=== PATIENT | female | born 1970 | race Caucasian/White ===

== ENCOUNTER 2018-12-16 18:41 | Observation (INO) | payer BC ==
[~2018-12-16] VITALS: Ht 172.7 cm; Wt 58.5 kg
[~2018-12-16 18:41] MED LIST: AEROECLIPSE II1 EACH MC; ALBU90OI; ALBU90OI6 INH; ALBU90OI61 INH; AMIT25 PO; AMIT50; AMIT50 PO; AMOCLA500; CARB200 PO; CIPR500 PO; DIAZ10 PO; DOXY100 PO; FLUC150A PO; FLUC200 PO; FLUSAL5005; FLUT1DIS5 INH; HYDACE5; HYDACE5 PO; LATUDA40 MG PO; LEVFLO500 PO; LORA.5; LORA1 PO; MONT10T; Multivitamin W1 EAC5 PO; NAPR250; NITR100CA PO; PRED10 PO; PROM25 PO; PSEU30 PO; Prednisone20 MG PO; QUET25 PO; Tobrex5 ML LEFTEYE; Ventolin Soln3 ML INH; XOPENEX1.25 MG/3 INH; Xopenex Hfa15 GM INH
[2018-12-16 20:33] LABS: BASOPHILS ABSOLUTE AUTO 0.04 K/mm3 (0.00-0.23); BASOPHILS PERCENT AUTO 0 % (0-2); EOSINOPHILS ABSOLUTE AUTO 0.02 K/mm3 (0.00-0.68); EOSINOPHILS PERCENT AUTO 0 % (0-6); Hematocrit 44.2 % (33.0-51.0); Hemoglobin 15.1 g/dL (11.5-16.0); IMMATURE GRAN ABSOLUTE AUTO 0.03 K/mm3 (0.00-0.10); IMMATURE GRAN PERCENT AUTO 0 % (0-1); LYMPHOCYTES ABSOLUTE AUTO 1.39 K/mm3 (0.84-5.20); LYMPHOCYTES PERCENT AUTO 12 % (21-46); MONOCYTES PERCENT AUTO 10 % (4-13); Mean Corpuscular HGB 32.2 pg (26.0-34.0); Mean Corpuscular HGB Conc 34.2 g/dL (31.5-36.5); Mean Corpuscular Volume 94 fL (80-100); Mean Platelet Volume 9.6 fL (9.1-12.4); NEUTROPHILS ABSOLUTE AUTO 8.83 K/mm3 (1.96-9.15); NEUTROPHILS PERCENT AUTO 77 % (41-73); Platelet Count 231 K/mm3 (150-400); RDW Coefficient Variation 12.3 % (11.7-14.2); RDW Standard Deviation 42.5 fL (35.1-46.3); Red Blood Cell Count 4.69 M/mm3 (3.80-5.20); White Blood Cell Count 11.51 K/mm3 (4.00-11.30)
[2018-12-16 20:56] LABS: Alanine Aminotransfer (ALT/SGP 45 U/L (12-78); Albumin, Blood 4.2 g/dL (3.4-5.0); Albumin/Globulin Ratio 1.4 (0.8-1.8); Alk Phos 69 U/L (50-136); Anion Gap 10 mmol/L (6-16); Aspartate Aminotrans (AST/SGOT 72 U/L (12-37); Bilirubin, Total 0.9 mg/dL (0.1-1.0); Blood Urea Nitrogen 10 mg/dL (8-24); Bun/Creatinine Ratio 15.2 (12.0-20.0); CO2, Blood 26 mmol/L (21-32); Chloride, Blood 101 mmol/L (98-108); Creatinine, Blood 0.66 mg/dL (0.40-1.00); Ethanol (Alcohol), Blood, Med <3 mg/dL; Globulin, Blood 3.1 g/dL (2.2-4.0); Glomerular Filtration Rate >60 (60-); Glucose, Blood 93 mg/dL (70-99); Potassium, Blood 3.5 mmol/L (3.5-5.5); Salicylate <1.7 mg/dL (2.8-20.0); Sodium, Blood 137 mmol/L (136-145); Total Protein, Blood 7.3 g/dL (6.4-8.2)
[2018-12-16 21:11] LABS: Acetaminophen, Random <2.0 ug/mL (10.0-30.0)
[2018-12-16] MEDS ORDERED: LEVALBUTEROL TA15 GM INH (21:54)
[2018-12-16] MEDS ORDERED: AMIT25 PO (21:56)
[2018-12-17 07:04] LABS: Source, Urine Clean Catch
[2018-12-17 07:12] LABS: Bilirubin, Urine Neg (Neg); Blood, Urine 3+ (Neg); Glucose Qualitative, Urine Neg (Neg); Ketones, Urine 2+ (Neg); Leukocyte Esterase, Urine Neg (Neg); Nitrite, Urine Neg (Neg); Protein, Urine Neg (Neg); Specific Gravity, Urine 1.005 (1.003-1.022); Urobilinogen, Urine NORM (Normal)
[2018-12-17 07:18] LABS: Appearance, Urine Clear (Clear); Color, Urine Pale Yellow (P-Yellow)
[2018-12-17 07:20] LABS: White Blood Cells, Urine 0-2 /hpf (0-5)
[2018-12-17 07:21] LABS: Bacteria Rare /hpf; Squamous Epithelial Cells Not Seen /hpf (Few)
[2018-12-17 07:33] LABS: U Amphetamine Screen Not Detected; U Barbituate Screen Not Detected; U Benzodiazapine Screen Not Detected; U Buprenorphine Screen Not Detected; U Cannabinoids Screen DETECTED; U Cocaine Screen Not Detected; U Methadone Screen Not Detected; U Methamphetamine Screen Not Detected; U Opiates Screen Not Detected; U Oxycodone Screen Not Detected; U Phencyclidine Screen Not Detected; U Propoxyphene Screen Not Detected
== END 2018-12-19 10:28 ==
LOC: ER 18:41 → EOR 18:42
PROVIDERS: ADMIT Emergency Medicine
DX: F31.9 Bipolar disorder, unspecified (principal); J45.909 Unspecified asthma, uncomplicated; F17.200 Nicotine dependence, unspecified, uncomplicated; Z91.038 Other insect allergy status; Z88.6 Allergy status to analgesic agent; Z88.1 Allergy status to other antibiotic agents; Z79.899 Other long term (current) drug therapy; Z79.51 Long term (current) use of inhaled steroids
CPT/HCPCS: 36415; 80053; 81001; 81025; 84443; 85025; 96372; 99285-25; G0378; G0480; Q0163; Q3014

== ENCOUNTER 2018-12-25 12:58 | Emergency (ER) | payer BC ==
[~2018-12-25] VITALS: Ht 172.7 cm; Wt 59.0 kg
[~2018-12-25 12:58] MED LIST changes: +LEVALBUTEROL TA15 GM INH
== END 2018-12-25 13:57 | disposition home or self-care (01) ==
LOC: ER 12:58
DX: F31.9 Bipolar disorder, unspecified (principal); F41.9 Anxiety disorder, unspecified; J45.909 Unspecified asthma, uncomplicated; Z88.6 Allergy status to analgesic agent; Z91.038 Other insect allergy status; Z88.8 Allergy status to other drugs, medicaments and biological substances; Z79.899 Other long term (current) drug therapy
CPT/HCPCS: 99284

== ENCOUNTER 2021-10-22 13:04 | Inpatient (IN) | payer BC ==
[~2021-10-22] VITALS: Ht 170.2 cm; Wt 65.8 kg
[2021-10-22 14:10] LABS: Ethanol (Alcohol), Blood, Med <3 mg/dL; Salicylate 1.8 mg/dL (2.8-20.0)
[2021-10-22 14:11] LABS: Alanine Aminotransfer (ALT/SGP 102 U/L (12-78); Albumin, Blood 4.5 g/dL (3.4-5.0); Albumin/Globulin Ratio 1.5 (0.8-1.8); Alk Phos 78 U/L (50-136); Anion Gap 15 mmol/L (6-16); Aspartate Aminotrans (AST/SGOT 260 U/L (12-37); Bilirubin, Total 1.2 mg/dL (0.1-1.0); Blood Urea Nitrogen 5 mg/dL (8-24); Bun/Creatinine Ratio 8.6 (12.0-20.0); CO2, Blood 20 mmol/L (21-32); Calcium, Blood 9.4 mg/dL (8.5-10.1); Chloride, Blood 85 mmol/L (98-108); Creatinine, Blood 0.58 mg/dL (0.40-1.00); Glomerular Filtration Rate 110 (60-); Glucose, Blood 113 mg/dL (70-99); Potassium, Blood 3.5 mmol/L (3.5-5.5); Sodium, Blood 120 mmol/L (136-145); Total Protein, Blood 7.5 g/dL (6.4-8.2)
[2021-10-22 14:43] LABS: Source, Urine Clean Catch
[2021-10-22 14:49] LABS: Bilirubin, Urine Neg (Neg); Blood, Urine 5+ (Neg); Color, Urine Yellow (P-Yellow); Glucose Qualitative, Urine Neg (Neg); Ketones, Urine 4+ (Neg); Leukocyte Esterase, Urine 1+ (Neg); Nitrite, Urine Neg (Neg); Protein, Urine 2+ (Neg); Urobilinogen, Urine NORM (Normal)
[2021-10-22 14:49] LABS: BASOPHILS ABSOLUTE AUTO 0.04 K/mm3 (0.00-0.23); BASOPHILS PERCENT AUTO 0 % (0-2); EOSINOPHILS ABSOLUTE AUTO 0.13 K/mm3 (0.00-0.68); EOSINOPHILS PERCENT AUTO 1 % (0-6); Hematocrit 37.6 % (33.0-51.0); Hemoglobin 14.1 g/dL (11.5-16.0); IMMATURE GRAN ABSOLUTE AUTO 0.05 K/mm3 (0.00-0.10); IMMATURE GRAN PERCENT AUTO 0 % (0-1); LYMPHOCYTES ABSOLUTE AUTO 1.18 K/mm3 (0.84-5.20); LYMPHOCYTES PERCENT AUTO 9 % (21-46); MONOCYTES ABSOLUTE AUTO 1.39 K/mm3 (0.16-1.47); MONOCYTES PERCENT AUTO 10 % (4-13); Mean Corpuscular HGB 32.9 pg (26.0-34.0); Mean Corpuscular HGB Conc 37.5 g/dL (31.5-36.5); Mean Corpuscular Volume 88 fL (80-100); Mean Platelet Volume 9.7 fL (9.1-12.4); NEUTROPHILS ABSOLUTE AUTO 10.64 K/mm3 (1.96-9.15); NEUTROPHILS PERCENT AUTO 79 % (41-73); Platelet Count 281 K/mm3 (150-400); RDW Coefficient Variation 11.5 % (11.7-14.2); RDW Standard Deviation 36.7 fL (35.1-46.3); Red Blood Cell Count 4.28 M/mm3 (3.80-5.20); White Blood Cell Count 13.43 K/mm3 (4.00-11.30)
[2021-10-22 15:44] LABS: U Amphetamine Screen Not Detected; U Barbituate Screen Not Detected; U Benzodiazapine Screen DETECTED; U Buprenorphine Screen Not Detected; U Cannabinoids Screen DETECTED; U Cocaine Screen Not Detected; U Methadone Screen Not Detected; U Methamphetamine Screen Not Detected; U Opiates Screen Not Detected; U Oxycodone Screen Not Detected; U Phencyclidine Screen Not Detected; U Propoxyphene Screen Not Detected
[2021-10-22 15:55] LABS: Appearance, Urine Hazy (Clear)
[2021-10-22 15:59] LABS: Bacteria Few /hpf; Squamous Epithelial Cells Few /hpf (Few)
[2021-10-22 16:41] LABS: Free Thyroxine 1.24 ng/dL (0.70-1.60)
[2021-10-22 16:44] LABS: Thyroid Stimulating Hormone 1.04 uIU/mL (0.360-4.800)
[2021-10-22 17:56] LABS: Base Excess Venous 0.7 mmol/L; PCO2 Venous 28.7 mmHg (38-42); pH Blood Venous 7.52 (7.34-7.37)
[2021-10-22 18:42] LABS: Acetaminophen, Random <2.0 ug/mL (10.0-30.0)
[2021-10-22] MEDS ORDERED: Ativan1 MG PO (22:41)
[2021-10-22] MEDS ORDERED: AMIT25 PO (22:42)
[2021-10-22] MEDS ORDERED: LEVALBUTEROL TA15 G1 INH (22:45)
[2021-10-23 05:28] LABS: BASOPHILS ABSOLUTE AUTO 0.04 K/mm3 (0.00-0.23); BASOPHILS PERCENT AUTO 1 % (0-2); EOSINOPHILS ABSOLUTE AUTO 0.09 K/mm3 (0.00-0.68); EOSINOPHILS PERCENT AUTO 1 % (0-6); Hematocrit 35.9 % (33.0-51.0); Hemoglobin 12.7 g/dL (11.5-16.0); IMMATURE GRAN ABSOLUTE AUTO 0.03 K/mm3 (0.00-0.10); IMMATURE GRAN PERCENT AUTO 0 % (0-1); LYMPHOCYTES ABSOLUTE AUTO 1.38 K/mm3 (0.84-5.20); LYMPHOCYTES PERCENT AUTO 16 % (21-46); MONOCYTES ABSOLUTE AUTO 0.82 K/mm3 (0.16-1.47); MONOCYTES PERCENT AUTO 10 % (4-13); Mean Corpuscular HGB 32.2 pg (26.0-34.0); Mean Corpuscular HGB Conc 35.4 g/dL (31.5-36.5); Mean Corpuscular Volume 91 fL (80-100); Mean Platelet Volume 9.3 fL (9.1-12.4); NEUTROPHILS ABSOLUTE AUTO 6.27 K/mm3 (1.96-9.15); NEUTROPHILS PERCENT AUTO 73 % (41-73); Platelet Count 228 K/mm3 (150-400); RDW Coefficient Variation 11.7 % (11.7-14.2); RDW Standard Deviation 38.9 fL (35.1-46.3); Red Blood Cell Count 3.95 M/mm3 (3.80-5.20); White Blood Cell Count 8.63 K/mm3 (4.00-11.30)
[2021-10-23 06:06] LABS: Magnesium, Blood 2.3 mg/dL (1.6-2.4)
[2021-10-23 06:07] LABS: Albumin, Blood 3.7 g/dL (3.4-5.0); Albumin/Globulin Ratio 1.3 (0.8-1.8); Bun/Creatinine Ratio 6.4 (12.0-20.0); Calcium, Blood 8.7 mg/dL (8.5-10.1); Creatinine, Blood 0.62 mg/dL (0.40-1.00); Globulin, Blood 2.8 g/dL (2.2-4.0); Potassium, Blood 2.7 mmol/L (3.5-5.5); Total Protein, Blood 6.5 g/dL (6.4-8.2)
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
--- NOTE | 2021-10-23 18:34 | NUR ---
SHIFT SUMMARY PATIENT DENIES PAIN, NAUSEA, AND SHORTNESS OF BREATH. PATIENT IS A 2P FOR TRANSFERS. PATIENT SLEEPS ON AND OFF. WHEN PATIENT IS AWAKE, PATIENT GOES FROM CURSING AT STAFF AND VERY AGGITATED TO CRYING TO LAUGHING WITH STAFF. PATIENT IN RESTRAINTS DUE TO ATTEMPTS TO LEAVE AND THREATENING TO HARM STAFF. PATIENT FREQUENTLY TALKED ABOUT CATS ON THE LANDR[place] AND HEARING HUSBANDS VOICE. PATIENT HAS FLIGHT OF IDEAS, PRESSURED SPEECH, AND TANGENTIAL CONVERSATIONS. PATIENT FREQUENTLY TALKS TO SELF. 1:[address] MEJIA CONSULTED IN AFTERNOON. NEW ORDERS FOR LOW SI, REFERRAL TO INPATIENT PSYCH. PATIENT HARD TO REDIRECT. PATIENT EATING AND DRINKING POORLY.
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
[2021-10-24 08:59] LABS: Anion Gap 9 mmol/L (6-16); Blood Urea Nitrogen 3 mg/dL (8-24); Bun/Creatinine Ratio 5.9 (12.0-20.0); CO2, Blood 25 mmol/L (21-32); Calcium, Blood 9.3 mg/dL (8.5-10.1); Chloride, Blood 100 mmol/L (98-108); Creatinine, Blood 0.51 mg/dL (0.40-1.00); Glomerular Filtration Rate 113 (60-); Glucose, Blood 113 mg/dL (70-99); Magnesium, Blood 2.3 mg/dL (1.6-2.4); Phosphorus, Blood 2.9 mg/dL (2.5-4.9); Potassium, Blood 3.6 mmol/L (3.5-5.5); Sodium, Blood 134 mmol/L (136-145)
--- NOTE | 2021-10-24 17:33 | NUR ---
SHIFT SUMMARY PATIENT MEDICATED X1 WITH TYLENOL FOR NECK PAIN, PATIENT GIVEN NICOTINE GUM X3, PATIENT MEDICATED X1 FOR ANXIETY. PATIENT IS IND IN ROOM. YEFRI VEST DISCONTINUED THIS MORNING, NO ISSUES. PATIENT STILL HAS TANGENTIAL SPEECH AT TIMES, FLIGHT OF IDEAS, PRESSURED SPEECH. PATIENT GOES THROUGH PHASES OF HAPPY THEN CRYING THEN AGGITATED. VISITED IN AFTERNOON. INPATIENT PSYCH FACILITY IS STILL RECOMMENDED. PATIENT IS EATING AND DRINKING SOME WHEN ENCOURAGED. PATIENT DOES NOT SLEEP MUCH. PATIENT PLEASANT AND COOPERATIVE WITH CARE.
--- NOTE | 2021-10-25 05:00 | NUR ---
SHIFT SUMMARY PT HAS BEEN UP AND DOWN INDEPENDENTLY THIS SHIFT. SHE HAS BEEN CALM AND COOPERATIVE WITH CARE. SHE ASKS FROR ANXIETY MEDS NEEDED, EXPLAINS HER NEEDS AND USES HER CALL LIGHT. SHE HAS NOT GOTTEN MUCH SLEEP BUT CLAIMS SHE NEEDS TO BE "UP AND MOVING TO PREVENT BLOOD CLOTS". PT USED TO BE M[facility] FOR [facility]. SHE STATES SHE HAS PAIN IN HER NECK BUT DENIES NEED FOR PAIN MEDICATION. BED IN LOWEST POSITION AND CALL LIGHT IN REACH
--- NOTE | 2021-10-25 17:58 | NUR ---
SHIFT SUMMARY PATIENT MEDICATED X2 FOR PAIN. PATIENT DENIES NAUSEA AND SHORTNESS OF BREATH. PATIENT IS INDEPENDENT IN ROOM. PATIENT CALM AND COOPERATIVE MOST OF SHIFT, PATIENT DOES STILL HAVE MANIC EPISODES, CRYING TO LAUGHING. PATIENT LESS AGGITATED THIS SHIFT. INPATIENT PSYCH REFERRALS STARTED. PATIENT IS EATING AND DRINKING BETTER, USUALLY 50% OF MEALS. PATIENT IS PLEASANT AND COOPERATIVE WITH CARE.
--- NOTE | 2021-10-26 05:15 | NUR ---
SHIFT SUMMARY PT HAS NOT SLEPT MUCH THIS SHIFT. SHE HAS BEEN UP AND DOWN ALL NIGHT WALKING IN THE HALLS AND GETTING FIXATED ON DIFFERENT TOPICS. SHE IS CONCERNED THAT SHE MAY HAVE THE SAME URI THAT HER DOES SHE FEELS SOME SINUS PRESSURE AND STATED THAT "I USUALLY GET VERY SICK AFTER ONE OF MY EPISODES." SHE HAS WRITTEN SEVERAL NOTES ON HER BOARD. PT IS OVER ALL VERY ANXIOUS, BUT DENIED THE MEDICATION STATING THAT SHE DIDN'T "WANT TO DOZE ALL DAY" PT WAS ABLE TO TAKE A SHOWER AND EAT A FEW SNACKS. BED IN LOWEST POSITION AND CALL LIGHT IN REACH.
--- NOTE | 2021-10-26 08:33 | NUR ---
pt sitting on the side of the bed and walking in the halls, a/ox3, seems to be fixating on taking her meds now, was reported no sleep last night, she is cooperative with care, follows commands well, denies pain, states she's anxious, lungs are a bit course, spring in right base, on r/a, resp even and unlabored, no cough noted, hrr, no edema noted, ppp+2, cap refill <3sec, vs stable, afebrile, btx4, abd flat soft nontender, voids without diff, skin c/w/d, maew, mery, up in room ad alee, gait noted to be steady, call light in reach.
--- NOTE | 2021-10-26 18:23 | NUR ---
pt has been calm today, she did ask for ativan prn once, and wanted it broke in half, no further changes this shift. call light in reach.
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
--- NOTE | 2021-10-27 06:29 | NUR ---
PT CURRENTLY IN THE HALLWAY CRYING OVER THE LACK OF FOOD OPTIONS IN THE PANTRY AND SAYING SHE NEEDS HER PROTEIN BEFORE BREAKFAST.
[2021-10-27 14:02] LABS: Influenza A, PCR NEGATIVE (NEGATIVE); Influenza B, PCR NEGATIVE (NEGATIVE); Resp Syncytial Virus, PCR NEGATIVE (NEGATIVE); SARS-Cov-2 (COVID-19) PCR, MMC NEGATIVE (NEGATIVE)
--- NOTE | 2021-10-27 17:50 | NUR ---
SHIFT SUMMARY: NO ACUTE EVENTS. PT'S DEMEANOR HAS BEEN LABILE TODAY, CRYING AND SHOUTING AT SOMEONE ON THE PHONE AT ONE POINT. FIXATES ON DIFFERENT THINGS AT THE SAME TIME. C/O CHRONIC PAIN IN L HIP AND ACUTE PAIN IN R ANKLE (SPRAIN?); MEDICATED PER EMAR WITH MINIMAL RELIEF. STARTED ON MIRALAX TODAY, HAD GOOD RESULT. TOLERATING REGULAR DIET, HAS MANY DIETARY REQUESTS, PEDIATRIC PHYSICIAN ASSISTANT VISITED TODAY. REQUESTING NICOTINE GUM OFTEN. AMBULATING INDEPENDENTLY IN HALLWAY. PLAN IS FOR TRANSFER TO [facility] WHEN BED AVAILABLE.
--- NOTE | 2021-10-27 18:17 | NUR ---
PATIENT WITH DINNER TRAY IN FRONT OF HER, SITTING UP TALKING TO FAMILY MEMBER ON THE PHONE. CALLED RN TO ROOM, STATING SHE WANTED HER BLOOD SUGAR CHECKED BECAUSE SHE FELT SHE WAS HAVING SYMPTOMS OF HYPOGLYCEMIA (NAUSEA AND SHAKY). ENCOURAGED HER TO EAT SOME DINNER TO ALLEVIATE THE SXS, BUT SHE INSISTED ON HAVING HER BG CHECKED. CBG CHECKED, RESULT WAS 100. SHE CONTINUED TO TALK AND LAUGH WITH FAMILY MEMBER ON THE PHONE AFTER RESULT WAS READ.
--- NOTE | 2021-10-27 19:33 | NUR ---
PT PACING THE HALLWAY AND TALKING TO SOMEONE WHO ISN'T THERE WHILE AT THE WINDOW
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
--- NOTE | 2021-10-28 16:32 | NUR ---
1520: PT AMBULATING IN HALLWAY, INFORMED THIS RN THAT SHE WAS HAVING CHEST PAIN IN THE L UPPER ASPECT OF HER CHEST. SHE STATED "I JUST WANTED TO LET YOU KNOW. I'M JUST GOING TO WALK IT OFF. I'LL LET YOU KNOW IF IT GETS WORSE." SHE DID NOT APPEAR TO BE IN ANY PHYSICAL DISTRESS; NO DIAPHORESIS, NO N/V, DENIED DIZZINESS. ADVISED PT TO GO TO HER ROOM TO REST INSTEAD OF EXERTING HERSELF, BUT SHE DECLINED. SHE HAD REQUESTED PRN ATIVAN FOR ANXIETY, WAS ADMINISTERED AT 1500. AT ~ 1525, A HUMAN SERVICE SPECIALIST WAS CALLED TO HER ROOM, INITIATED BY THE PATIENT. SHE WAS SITTING AT THE EDGE OF THE BED CRYING, STATING THAT THIS RN WAS "NOT TAKING (HER) CHEST PAIN SERIOUSLY." SHE REFUSED EVALUATION BY HUMAN SERVICE SPECIALIST TEAM. SHE WAS QUITE AGITATED, BP ELEVATED. DR. MYLES CAME TO BEDSIDE, ORDERED EKG AND TROPONIN X 1. EVANS RT STATED THAT PT HAD STATED THIS MORNING, DURING INHALER ADMINISTRATION, THE PATIENT HAD POINTED TO THE HUMAN SERVICE SPECIALIST BRAIDER OPERATOR ON THE WALL OF HER ROOM AND STATED THAT SHE "COULD CALL THIS, IF I WANTED TO." SOON PATIENT GOT THE ATTENTION SHE WANTED, CHEST DISCOMFORT RESOLVED COMLETELY AND SHE BEGAN AMBULATING IN THE [place] AGAIN. ITZEL WNL, EKG WITH PREVIOUSLY KNOW L BBB (PT STATED SHE HAD THIS).
--- NOTE | 2021-10-28 16:43 | NUR ---
Areli approched me with a complaint of chest pain. Stated she told the nurse already. I gave her advice which was go relax and get some rest. She yelled at me, told me she was panicking. I attended to another patient, as she proceeded to call a rapid response. Today she has used her call light and instantly hollering out to the fung from her room. A lot of cussing. Wants a lot of attention.
--- NOTE | 2021-10-28 18:01 | NUR ---
SHIFT SUMMARY: EVENTS IN PREVIOUS NOTES. AMBULATING IN HALLWAY, GAIT IS STEADY. MOOD IS LABILE, SOBBING TO ANGRY TO APOLOGETIC WITHIN MINUTES OF EACH OTHER. FLIGHT OF IDEAS AND THEN BECOMES OBSESSED OVER SMALL THINGS. INDEPENDENT IN ROOM, PERFORMS OWN ADL'S. C/O CHRONIC PAIN IN L HIP AND ACUTE PAIN IN R ANKLE; MEDICATED PER EMAR. TOLERATING PO INTAKE. AWAITING ADMISSION TO IN PSYCH FACILITY. TWO MD HOLD HAS .
--- NOTE | 2021-10-29 04:10 | NUR ---
SHIFT SUMMARY PT AWAKE THE ENTIRE SHIFT THIS EVENING SO FAR. OUT PACING THE HALLS MOST OF THE NIGHT. TALKING NON STOP. ATTENTION SEEKING BEHAVIOUR. PT BECOMES OBSESSED AND HYPERFOCUSED ON SUBJECTS. STATED EARLY IN SHIFT THAT SHE WAS TIRED BUT WAS AFRAID TO GO TO SLEEP BECAUSE SHE WAS SCARED THAT SHE WOULD STOP BREATHING WHILE SLEEPING. SHE REPORTED THAT SHE WAS "OVER MEDICATED". HAD RT SET UP ORDERED CONTINUOUS OX MONITORING BUT THEN PT DID NOT WANT TO PUT IT ON "UNTIL SHE WAS READY FOR BED". OFFERED MULTIPLE TIMES THROUGHOUT THE NIGHT BUT PT HAS REMAINED UP AND AWAKE. CONTINUES TO REPORT GENERALIZED PAIN, MOSTLY CHRONIC IN NATURE BUT SOME ACUTE PAIN TO R ANKLE THAT MAY HAVE BEEN SPRAINED. MEDICATED PER EMAR. PT CONTINUES TO AWAIT INPATIENT PSYCH. VITAL SIGNS STABLE.
--- NOTE | 2021-10-29 19:30 | NUR ---
SHIFT SUMMARY: NO ACUTE EVENTS. IN FACT, PATIENT WAS LESS ANXIOUS TODAY SHE HAD MANY PEOPLE TO TALK TO (OTHER PT'S VISITORS) WHICH KEPT HER OCCUPIED, SHE THOUGHT LESS ABOUT HER MANY MALADIES. R ANKLE EDEMA AND PAIN ARE MUCH IMPROVED. AMBULATING INDEPENDENTLY. TOLERATING PO INTAKE. BECAME ANGRY AT CHANGE OF SHIFT. AWAITING INPATIENT PSYCH BED IN [place]. NO RESTRAINTS IN USE THIS SHIFT.
--- NOTE | 2021-10-29 22:39 | NUR ---
PT BECOMING INCREASINGLY AGITATED THIS EVENING. REQUESTED A HALF DOSE OF HER PRN ATIVAN WHICH WAS GIVEN. FOLLOWING THAT PT CAME OUT OF THE ROOM AND WAS VERBALLY ABUSING THIS RN. YELLING, "YOU ARE AN INCOMPETENT BITCH". AND STATED THAT SHE DID NOT WANT ME COMING IN TO HER ROOM FOR THE REST OF THE NIGHT. PT ALSO ACCUSED THIS RN OF TELLING HER TO "SIT DOWN AND SHUT THE FUCK UP" WHICH WAS NOT AN INTERACTION THAT HAPPENED. PT APPEARS MORE DELUSIONAL THIS EVENING. PT ASKED TO BE HOOKED UP TO HER CONTINOUS OX MACHINE AND STATED THAT SHE WOULD NOT ALLOW THIS RN TO HOOK IT UP. STATED THAT SHE WANTED RESPIRATORY THERAPY TO HOOK IT UP AND THAT IF I DID NOT CALL RESPIRATORY THERAPY THAT SHE WOULD CALL AN GENERAL ACCOUNTING MANAGER TO GET THEM TO HER ROOM. SHE WAS INFORMED THAT IT WAS NO PROBLEM TO GET RESPIRATORY TO HER ROOM AND THEY WERE CALLED. RT AT BEDSIDE AT THIS TIME TO MANAGER ASSESSMENT CONTINUOUS OX MONITORING. OUTREACH ASSOCIATE AND NURSING STUDENT SERVICES COORDINATOR MADE AWARE.
--- NOTE | 2021-10-30 00:45 | NUR ---
PT CALLED 0 ON PHONE IN [place] TO REACH HOSPITAL DURAL MECHANIC. SHE ASKED THEM FOR THE NUMBER TO JOINT COMMISSION AND PT BECAME ANGRY AND YELLING ON PHONE WHEN SHE WAS TOLD THEY DID NOT HAVE THAT NUMBER. PT STATED THAT SHE WAS GOING TO REPORT ALL OF THE "INCOMPETENT NURSES AND DOCTORS IN THIS HOSPITAL". CHARGE NURSE CAME TO SPEAK WITH PT ABOUT HER BEHAVIOUR. PT STAYED IN HER ROOM FOR ABOUT AN HOUR AFTER AND THEN CAME BACK OUT IN THE [place], YELLING AT THIS RN TO THAT SHE DID NOT WANT ME IN HER ROOM AND THEN YELLING FOR ME TO "DO MY FUCKING JOB". APPEARS CALM FOR SHORT PERIODS OF TIME AND THEN ESCALATES QUICKLY. MOOD EXTREME AND VERY LABILE THIS EVENING.
--- NOTE | 2021-10-30 01:55 | NUR ---
PT IN HER ROOM THROWING THINGS AND SCREAMING AND CUSSING. CAME AGGRESSIVELY OUT INTO THE [place]. SCREAMING "I CANT TAKE A FUCKING SHIT IN THIS HOSPITAL IN PRIVATE" AND ASKING ABOUT A MAN COMING THROUGH. ESCALATING QUICKLY, OPHTHALMOLOGIST RETINA SPECIALIST CALLED. SECURITY TO FLOOR TO ASSIST CHARGE NURSE IN ADMINISTERING IM ZYPREXA. ONCE IN THE ROOM PT AGREED TO TAKE PO ZYPREXA. PT WANDERING THE HALLS AT THIS TIME. TALKING NON STOP. STILL TALKING AGGRESSIVELY AND PACING THE HALLS.
[2021-10-30 05:42] LABS: Calcium, Blood 9.9 mg/dL (8.5-10.1); Creatinine, Blood 0.7 mg/dL (0.40-1.00); Magnesium, Blood 2.8 mg/dL (1.6-2.4); Potassium, Blood 4.2 mmol/L (3.5-5.5)
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
--- NOTE | 2021-10-31 04:43 | NUR ---
SHIFT SUMMARY A/O 3-4, IND IN ROOM AND HALLWAY. PRESSURED SPEECH AND PARANOIA, COMPLIANT WITH MEDICATIONS THIS SHIFT. LABILE MOOD, EASILY AGITATED WITH STAFF. RESTLESS T/O NIGHT, APPROX 2 HOURS OF SLEEP THIS SHIFT. DENIES PAIN OR SOB. VSS, NO ACUTE CHANGES AT THIS TIME. BED IN LOWEST POSITION WITH CALL LIGHT IN REACH. WILL CONTINUE TO MONITOR AND REPORT TO ONCOMING RN.
[2021-10-31] MEDS ORDERED: FLUTICASONE-SA1 EAC2 INH (16:00)
[2021-10-31] MEDS ORDERED: Acetaminophen325 M1 PO (16:01)
[2021-10-31] MEDS ORDERED: ABILIFY MYCITE20 M2 PO (16:01)
[2021-10-31] MEDS ORDERED: DOCU100 PO (16:01)
[2021-10-31] MEDS ORDERED: ALBU2.5V5 INH (16:01)
[2021-10-31] MEDS ORDERED: DULCOLAX400 MG/5 M PO (16:02)
[2021-10-31] MEDS ORDERED: MULVITA PO (16:02)
[2021-10-31] MEDS ORDERED: NAPR500 PO (16:03)
[2021-10-31] MEDS ORDERED: NICO2 PO (16:03)
[2021-10-31] MEDS ORDERED: OLAN5 PO (16:04)
[2021-10-31] MEDS ORDERED: NYSTATIN100000 U10 PO (16:04)
[2021-10-31] MEDS ORDERED: MIRALAX17 GM PO (16:05)
[2021-10-31] MEDS ORDERED: OXCARBAZEPINE150 M1 PO (16:05)
[2021-10-31] MEDS ORDERED: OXCARBAZEPINE PO (16:05)
[2021-10-31] MEDS ORDERED: RISP2 PO (16:06)
--- NOTE | 2021-10-31 16:12 | NUR ---
DISCHARGE SUMMARY PATIENT IS DISCHARGED OFF UNIT. PATIENT IS AMBULATORY OFF UNIT.
== END 2021-10-31 15:45 | DRG 885 ==
LOC: ER 13:04 → MEDS 19:04
PROVIDERS: Internal Medicine; Nurse Practitioner Acute Care; Physician Assistant; ADMIT Internal Medicine
DX: F30.2 Manic episode, severe with psychotic symptoms (principal); G92.8 Other toxic encephalopathy; E87.1 Hypo-osmolality and hyponatremia; R65.10 Systemic inflammatory response syndrome (SIRS) of non-infectious origin without acute organ dysfunction; E87.6 Hypokalemia; R09.89 Other specified symptoms and signs involving the circulatory and respiratory systems; F25.0 Schizoaffective disorder, bipolar type; R74.8 Abnormal levels of other serum enzymes; J45.909 Unspecified asthma, uncomplicated; Z20.822 Contact with and (suspected) exposure to COVID-19; F17.210 Nicotine dependence, cigarettes, uncomplicated; R74.01 Elevation of levels of liver transaminase levels; Z85.3 Personal history of malignant neoplasm of breast; Z91.038 Other insect allergy status; Z98.890 Other specified postprocedural states; Z98.51 Tubal ligation status; Z79.899 Other long term (current) drug therapy; Z88.8 Allergy status to other drugs, medicaments and biological substances; Z78.1 Physical restraint status; Z91.14 Patient's other noncompliance with medication regimen
CPT/HCPCS: 0241U; 36415; 71045; 73610; 80048; 80053; 80069; 81001; 81025; 82803; 82947; 83735; 83930; 83935; 84295; 84300; 84439; 84443; 84484; 85025; 87086; 93005; 93010; 94640; 94664; 94760; 94762; 96361; 96374; 99285; A9270; G0480; J1630; J1650; J2060; J3480; J7030; Q3014

== ENCOUNTER 2021-10-31 15:21 | Observation (INO) | payer BC ==
[~2021-10-31] VITALS: Ht 165.1 cm; Wt 64.4 kg
[~2021-10-31 15:21] MED LIST changes: +Ativan1 MG PO; +LEVALBUTEROL TA15 G1 INH
[2021-10-31] MEDS ORDERED: FLUTICASONE-SA1 EAC2 INH (16:00)
[2021-10-31] MEDS ORDERED: ABILIFY MYCITE20 M2 PO (16:01)
[2021-10-31] MEDS ORDERED: ALBU2.5V5 INH (16:01)
[2021-10-31] MEDS ORDERED: Acetaminophen325 M1 PO (16:01)
[2021-10-31] MEDS ORDERED: DOCU100 PO (16:01)
[2021-10-31] MEDS ORDERED: MULVITA PO (16:02)
[2021-10-31] MEDS ORDERED: DULCOLAX400 MG/5 M PO (16:02)
[2021-10-31] MEDS ORDERED: NAPR500 PO (16:03)
[2021-10-31] MEDS ORDERED: NICO2 PO (16:03)
[2021-10-31] MEDS ORDERED: NYSTATIN100000 U10 PO (16:04)
[2021-10-31] MEDS ORDERED: OLAN5 PO (16:04)
[2021-10-31] MEDS ORDERED: MIRALAX17 GM PO (16:05)
[2021-10-31] MEDS ORDERED: OXCARBAZEPINE PO (16:05)
[2021-10-31] MEDS ORDERED: OXCARBAZEPINE150 M1 PO (16:05)
[2021-10-31] MEDS ORDERED: RISP2 PO (16:06)
[2021-11-03 03:31] LABS: Source, Urine Clean Catch
[2021-11-03 03:41] LABS: Bilirubin, Urine Neg (Neg); Blood, Urine 1+ (Neg); Glucose Qualitative, Urine Neg (Neg); Ketones, Urine Neg (Neg); Leukocyte Esterase, Urine 1+ (Neg); Nitrite, Urine Neg (Neg); Protein, Urine 1+ (Neg); Urobilinogen, Urine NORM (Normal); pH, Urine 6.5 (5.0-8.0)
[2021-11-03 03:46] LABS: Influenza A, PCR NEGATIVE (NEGATIVE); Influenza B, PCR NEGATIVE (NEGATIVE); Resp Syncytial Virus, PCR NEGATIVE (NEGATIVE); SARS-Cov-2 (COVID-19) PCR, MMC NEGATIVE (NEGATIVE)
[2021-11-03 03:57] LABS: U Amphetamine Screen Not Detected; U Barbituate Screen Not Detected; U Benzodiazapine Screen DETECTED; U Buprenorphine Screen Not Detected; U Cannabinoids Screen DETECTED; U Cocaine Screen Not Detected; U Methadone Screen Not Detected; U Methamphetamine Screen Not Detected; U Opiates Screen DETECTED; U Oxycodone Screen Not Detected; U Phencyclidine Screen Not Detected; U Propoxyphene Screen Not Detected
[2021-11-03 03:58] LABS: Appearance, Urine Clear (Clear); Color, Urine Yellow (P-Yellow)
[2021-11-03 03:59] LABS: Amorphous Light (0-Heavy); Bacteria Few /hpf; Red Blood Cells, Urine 0-2 /hpf (0-2); Squamous Epithelial Cells Rare /hpf (Few); White Blood Cells, Urine 0-2 /hpf (0-5)
== END 2021-11-15 20:40 | disposition short-term general hospital (02) ==
LOC: ER 15:21 → EOR 15:22
PROVIDERS: Emergency Medicine; ADMIT Emergency Medicine
DX: F31.2 Bipolar disorder, current episode manic severe with psychotic features (principal); F12.10 Cannabis abuse, uncomplicated; Z88.6 Allergy status to analgesic agent; Z88.1 Allergy status to other antibiotic agents; Z88.8 Allergy status to other drugs, medicaments and biological substances; Z20.822 Contact with and (suspected) exposure to COVID-19; F17.210 Nicotine dependence, cigarettes, uncomplicated
CPT/HCPCS: 0241U; 72040; 81001; 81025; 82947; 87086; 99285; A9270; G0378

== ENCOUNTER 2025-04-21 18:17 | Emergency (ER) | payer BC ==
[~2025-04-21] VITALS: Ht 172.7 cm; Wt 68.0 kg
[~2025-04-21 18:17] MED LIST changes: +ABILIFY MYCITE20 M2 PO; +ALBU2.5V5 INH; +Acetaminophen325 M1 PO; +DOCU100 PO; +DULCOLAX400 MG/5 M PO; +FLUTICASONE-SA1 EAC2 INH; +MIRALAX17 GM PO; +MULVITA PO; +NAPR500 PO; +NICO2 PO; +NYSTATIN100000 U10 PO; +OLAN5 PO; +OXCARBAZEPINE PO; +OXCARBAZEPINE150 M1 PO; +RISP2 PO
[2025-04-21 18:34] VITALS: BP 115/73
[2025-04-21 19:08] LABS: Alanine Aminotransfer (ALT/SGP 25.0 U/L (12-78); Albumin, Blood 4.0 g/dL (3.4-5.0); Albumin/Globulin Ratio 1.3 (0.8-1.8); Anion Gap 7.0 mmol/L (3-11); Aspartate Aminotrans (AST/SGOT 17.0 U/L (12-37); Bilirubin, Total 0.3 mg/dL (0.1-1.0); Blood Urea Nitrogen 11.0 mg/dL (8-24); CO2, Blood 28.0 mmol/L (21-32); Calcium, Blood 9.1 mg/dL (8.5-10.1); Chloride, Blood 108.0 mmol/L (98-108); Creatinine, Blood 0.69 mg/dL (0.40-1.00); Globulin, Blood 3.1 g/dL (2.2-4.0); Glucose, Blood 108.0 mg/dL (70-99); Potassium, Blood 3.9 mmol/L (3.5-5.5); Sodium, Blood 139.0 mmol/L (136-145); Total Protein, Blood 7.1 g/dL (6.4-8.2)
[2025-04-21 19:16] LABS: BASOPHILS ABSOLUTE AUTO 0.05 K/mm3 (0.00-0.23); BASOPHILS PERCENT AUTO 1 % (0-2); EOSINOPHILS ABSOLUTE AUTO 0.12 K/mm3 (0.00-0.68); EOSINOPHILS PERCENT AUTO 1 % (0-6); Hematocrit 40.6 % (33.0-51.0); Hemoglobin 13.6 g/dL (11.5-16.0); IMMATURE GRAN ABSOLUTE AUTO 0.02 K/mm3 (0.00-0.10); IMMATURE GRAN PERCENT AUTO 0 % (0-1); LYMPHOCYTES ABSOLUTE AUTO 1.80 K/mm3 (0.84-5.20); LYMPHOCYTES PERCENT AUTO 19 % (21-46); MONOCYTES ABSOLUTE AUTO 0.93 K/mm3 (0.16-1.47); MONOCYTES PERCENT AUTO 10 % (4-13); Mean Corpuscular HGB Conc 33.5 g/dL (31.5-36.5); Mean Corpuscular Volume 96 fL (80-100); NEUTROPHILS ABSOLUTE AUTO 6.42 K/mm3 (1.96-9.15); NEUTROPHILS PERCENT AUTO 69 % (41-73); NRBC ABSOLUTE 0.00 K/mm3 (0.00-0.02); NRBC Auto 0.0 /100 WBC (0.0-0.2); Platelet Count 205 K/mm3 (150-400); RDW Coefficient Variation 12.3 % (11.7-14.2); RDW Standard Deviation 43.8 fL (35.1-46.3)
[2025-04-22] MEDS ORDERED: TRAZ100 (09:24)
[2025-04-22] MEDS ORDERED: ALBU2.5V5 INH (13:44)
[2025-04-22] MEDS ORDERED: PRED20 PO (13:46)
== END 2025-04-21 20:58 | disposition left against medical advice (07) ==
LOC: ER 18:17
PROVIDERS: Emergency Medicine
DX: Z53.21 Procedure and treatment not carried out due to patient leaving prior to being seen by health care provider (principal)
CPT/HCPCS: 71046; 80053; 84484; 85025; 93005; 93010

== ENCOUNTER → 2025-04-22 | Emergency (ER) | payer BC ==
[~2025-04-22] VITALS: Ht 167.6 cm; Wt 63.5 kg
[~2025-04-22] MED LIST changes: +PRED20 PO; +TRAZ100
[2025-04-22 13:06] LABS: Influenza A, PCR NEGATIVE (NEGATIVE); Influenza B, PCR NEGATIVE (NEGATIVE); Resp Syncytial Virus, PCR NEGATIVE (NEGATIVE); SARS-Cov-2 (COVID-19) PCR, MMC NEGATIVE (NEGATIVE)
[2025-04-22 14:01] VITALS: BP 130/86
== END ==
LOC: ER 08:56
PROVIDERS: Student in an Organized Health Care Education/Training Program
DX: J45.901 Unspecified asthma with (acute) exacerbation (principal); Z79.51 Long term (current) use of inhaled steroids; Z79.899 Other long term (current) drug therapy; Z91.038 Other insect allergy status; Z88.6 Allergy status to analgesic agent; Z91.040 Latex allergy status; Z88.8 Allergy status to other drugs, medicaments and biological substances
CPT/HCPCS: 84484; 85379; 87637; 93005; 93010; 99284-25; J7512; J7614